=== PATIENT | female | born 1985 | race Caucasian/White ===

== ENCOUNTER 2017-01-27 18:55 | Inpatient (IN) | payer BC ==
[~2017-01-27] VITALS: Ht 154.9 cm; Wt 83.5 kg
[2017-01-27 20:22] LABS: ABSOLUTE BASOPHIL COUNT 0.1 /CUMM (0.0-0.2); ABSOLUTE EOSINOPHIL COUNT 0.1 /CUMM (0.0-0.7); ABSOLUTE GRANULOCYTE CT 9.5 /CUMM (1.4-6.5); ABSOLUTE LYMPH COUNT 2.7 /CUMM (1.2-3.4); ABSOLUTE MONOCYTE COUNT 0.9 /CUMM (0.10-0.60); BASOPHIL % 0.4 % (0.0-2.0); EOSINOPHIL % 0.6 % (0-5); GRANULOCYTE % 71.9 % (42.2-75.2); HEMATOCRIT 38.5 % (37-47); MEAN CORPUSCULAR HGB 31.4 PG (27.0-31.0); MEAN CORPUSCULAR HGB CONC 33.7 G/DL (33.0-37.0); MEAN CORPUSCULAR VOLUME 93.1 FL (81.0-99.0); MEAN PLATELET VOLUME 9.3 FL (7.4-10.4); PLATELET COUNT 217 /CUMM (130-400); RBC DISTRIBUTION WIDTH 12.6 % (11.5-14.5); RED BLOOD CELL CT 4.13 /CUMM (4.20-5.40); WHITE BLOOD CELL COUNT 13.3 /CUMM (4.8-10.8)
--- NOTE | 2017-01-28 17:03 | History & Physical ---
General Information and HPI MD Statement: I have seen and personally examined REMY LIN and documented this H&P. The patient is a 31 year old female at [39] weeks and [3] days gestation who presented with a chief complaint of [PROM]. History of Present Illness: PROM positive GBS. care complete and unremarkable other than GBS. Allergies/Medications Allergies: Coded Allergies: mercaptopurine (UNKNOWN 01/27/17) Past History sap administrator History : 1 Para: 0 Last Menstrual Period: 04/26/16 Estimated Delivery Date: 01/31/17 Past sap administrator History: none Surgical History Pertinent Surgical History: none Past Family/Social History Psychosocial History Smoking Status: Former Smoker Review of Systems Review of Systems Constitutional: Reports: no symptoms. EENTM: Reports: no symptoms. Cardiovascular: Reports: no symptoms. Respiratory: Reports: no symptoms. GI: Reports: no symptoms. Genitourinary: Reports: no symptoms. Musculoskeletal: Reports: no symptoms. Skin: Reports: no symptoms. Neurological/Psychological: Reports: no symptoms. Hematologic/Endocrine: Reports: no symptoms. Immunologic/Allergic: Reports: no symptoms. All Other Systems: Reviewed and Negative Exam & Diagnostic Data Last 24 Hrs of Vital Signs/I&O Intake & Output 07/ 1600 07/02 0800 07/ 0000 Intake Total Output Total Balance Patient 184 lb Weight Obstetric Exam Wgt Gained During : 35 Pelvimetry: gynecoid Dilation (cm): 1 Effacement (%): 0 Station: -2 Membranes: SROM Fluid: clear Fundal Height (cm): 41 Multiple Gestation? No Contractions: occ Infant #1 - FHR Baseline: 140 Category: 1 Estimated Weight: 7 Presentation: cephalic Patient for Induction? Yes Kemp Score Kemp Score Response Value Cervix Position: posterior 0 Cervix Consistency: medium 1 Cervix Effacement: 0-30% 0 Cervix Dilation: 1-2 cm 1 Cervix Station: -2 1 Total 3 Physical Exam: HEENL: NCAT Chest: CTA CV: nl S1S2 Abd: gravid, cephalick 7 lb Ext: no c/c/e Labs Blood Type & Rh: A pos Antibody Screen: neg Hct/Hgb & Platelets #1: 36//242 Hct/Hgb & Platelets #2: 35//236 Rubella: imm VDRL #1: nr VDRL #2: nr HbsAg: neg HIV #1: neg HIV #2 neg 1 Hr P Group B Strep: pos Initial Ultrasound: wnl Anatomy Ultrasound: wnl Ultrasound for EFW: 6 Genetic Testing: neg Last 24 Hrs of Labs/Valentin: Laboratory Tests 01/27/17 1950: CBC w Diff NO MAN DIFF REQ, RBC 4.13 L, MCV 93.1, MCH 31.4 H, RDW 12.6, MPV 9.3, Gran % 71.9, Lymphocytes % 20.5, Monocytes % 6.6, Eosinophils % 0.6, Basophils % 0.4, Absolute Granulocytes 9.5 H, Absolute Lymphocytes 2.7, Absolute Monocytes 0.9 H, Absolute Eosinophils 0.1, Absolute Basophils 0.1, PUBS MCHC 33.7, Urinalysis MOD H, Urine Color STRAW, Urine Clarity CLDY H, Urine pH 6.5, Ur Specific [place] <= 1.005, Urine Protein TRACE H, Urine Ketones NEG, Urine Nitrite NEG, Urine Bilirubin NEG, Urine Urobilinogen 0.2, Ur Leukocyte Esterase SMALL H, Ur Microscopic SEDIMENT EXAMINED, Urine RBC 1-3, Urine WBC 3-5 H, Ur Epithelial Cells MOD H, Urine Bacteria RARE H, Urine Hemoglobin MOD H, Urine Glucose NEG 01/27/17 1920: Membrane Rupture POSITIVE Assessment/Plan Assessment/Plan: PROM at 39 weeks GBS UC q 4-5 Plan: pitocin As Ranked By This Provider Problem List: 1. Core Measures/Miscellaneous Venous Thromboembolism VTE Risk Factors: / VTE Contraindications: No Contraindications VTE Diagnosis: No Beta Adelfo Is Beta Adelfo a Home Med? No Antibiotics Is Patient on Antibiotics? Yes
--- NOTE | 2017-01-28 17:06 | PN- Obstetrical ---
Subjective Subjective: comfortable s/p epidural Review of Systems: neg Objective Last 24 Hrs of Vital Signs/I&O Intake & Output 01/28 1600 01/28 0800 01/28 0000 Intake Total Output Total Balance Patient 184 lb Weight Physical Exam: Cx: 8cm/90/-1 with mod bleeding Obstetric Exam Dilation (cm): 8 Effacement (%): 90 Station: -1 Membranes: SROM Fluid: bloody show Multiple Gestation? No Contractions: q2 #1 - FHR Baseline: 140 Category: 1 Estimated Weight: 7 Presentation: cephalic Assessment/Plan Assessment/Plan possible placental abruption close observation if no further dilation in 2 hours or increased vb/ distress will proceed to c/s; pt agrees Problem List: 1.
--- NOTE | 2017-01-28 22:17 | Labor & Delivery Summary ---
Delivery Summary Vaginal Delivery: Vaginal: spontaneous Episiotomy/Lacerations: Episiotomy/Lacerations: EPIS Type: RML Repair: LAYERS 3-0 Anesthesia: EPILOCAL; Placenta: Placenta: spontanteous, normal, 3 vessel Baby's Weight: P STS Apgars - 1 Min: 9 Apgars - 5 Min: 9
[2017-01-29 01:15] VITALS: BP 142/78
[2017-01-29 08:51] LABS: ABSOLUTE BASOPHIL COUNT 0.1 /CUMM (0.0-0.2); ABSOLUTE EOSINOPHIL COUNT 0.1 /CUMM (0.0-0.7); ABSOLUTE LYMPH COUNT 2.3 /CUMM (1.2-3.4); BASOPHIL % 0.4 % (0.0-2.0); RBC DISTRIBUTION WIDTH 12.4 % (11.5-14.5)
[2017-01-29 09:05] LABS: ABSOLUTE GRANULOCYTE CT 12.6 /CUMM (1.4-6.5); ABSOLUTE MONOCYTE COUNT 1.2 /CUMM (0.10-0.60); EOSINOPHIL % 0.6 % (0-5); GRANULOCYTE % 77.2 % (42.2-75.2); MEAN CORPUSCULAR HGB CONC 34.3 G/DL (33.0-37.0); MEAN CORPUSCULAR VOLUME 93.4 FL (81.0-99.0); MEAN PLATELET VOLUME 9.3 FL (7.4-10.4); PLATELET COUNT 167 /CUMM (130-400); RED BLOOD CELL CT 3.41 /CUMM (4.20-5.40); WHITE BLOOD CELL COUNT 16.3 /CUMM (4.8-10.8)
[2017-01-29 09:07] LABS: HEMATOCRIT 31.8 % (37-47)
[2017-01-30] MEDS ORDERED: IBUPROFEN800 M1 PO (09:42)
[2017-01-30] MEDS ORDERED: DOCUSATE SODIU100 M3 PO (09:42)
== END 2017-01-30 11:10 | DRG 775 ==
LOC: CBCO 18:55 → GNO 19:34
PROVIDERS: ADMIT Obstetrics & Gynecology
PROC: 10E0XZZ Delivery of Products of Conception, External Approach (ICD-10-PCS; principal; 2017-01-28)
DX: O99.824 Streptococcus B carrier state complicating childbirth (principal); Z87.891 Personal history of nicotine dependence; Z3A.39 39 weeks gestation of pregnancy; Z37.0 Single live birth
CPT/HCPCS: GNOP; GNOS; 36415; 81001; 84112; G0463; J0131; J0690; J2210; J2405; J7120